=== PATIENT | male | born 1955 | race Caucasian/White ===

== ENCOUNTER → 2020-09-28 | Outpatient (CLI) | payer BC, OTHER ==
[~2020-09-28] MED LIST: AC500T PO; ATOR40TA PO; ATR20T PO; CETI10CA PO; CHOL100011 PO; CINNAMON PO; DCS100C PO; FENO134C PO; FISH1CAP15 PO; HYDR-3454 PO; HYDR-3857 PO; MULT-963 PO; UBID200C PO
--- NOTE | 2020-09-28 09:00 | Diagnostic Imaging Report ---
PROCEDURE: US Hepatic (Liver). TECHNIQUE: Multiple Real-time grayscale images were obtained over the right upper quadrant in various projections. INDICATION: Liver cyst. FINDINGS: The liver is enlarged at 18.9 cm. There is an approximately 15 mm cyst in the right lobe of the liver. No other liver lesions are seen. The portal vein is patent and shows normal direction of flow. The gallbladder contains a small polyp. No stones are seen. There is no wall thickening. No biliary ductal dilatation is seen. The pancreas, aorta, and IVC are obscured by bowel gas. The right kidney contains an area of rounded echogenicity in the midportion measuring approximately 2.8 x 2.4 cm in size. This is similar to the prior exam dating back to 2011 and may represent a prominent column. Otherwise, no hydronephrosis or calculus. There is no ascites. IMPRESSION: 1. Hepatic cyst. 2. No evidence of cholelithiasis or acute cholecystitis. 3. Questionable mass versus prominent column in the midportion of the right kidney. Dedicated CT with and without IV contrast could be performed for further characterization. Dictated by: Dictated on workstation # [id number]
== END ==
LOC: RAD 07:45
PROVIDERS: ATTEND Family Medicine
DX: K76.89 Other specified diseases of liver (principal)
CPT/HCPCS: 76705

== ENCOUNTER → 2020-10-11 | Outpatient (CLI) | payer OTHER ==
[~2020-10-11] MED LIST changes: +CATHETER FLUSH 10 ML SYR IV PRN; +HOLD METFORMIN - RECEIVED CONTRAST 20 ML VIAL IV SCH; +IOHEXOL 350 MG/ML 100 ML (OMNIPAQUE 350) VIAL IV ONE; +NS 100 ML (IVPB) BAG IV ONE
[2020-10-11 10:44] LABS: ALANINE AMINOTRANSFERASE 25 U/L (0-55); ALBUMIN 4.4 GM/DL (3.2-4.5); ALKALINE PHOSPHATASE 74 U/L (40-136); BILIRUBIN,TOTAL 0.6 MG/DL (0.1-1.0); BUN/CREATININE RATIO 21; CALCIUM 9.4 MG/DL (8.5-10.1); CARBON DIOXIDE 26 MMOL/L (21-32); CHLORIDE 106 MMOL/L (98-107); CREATININE SERUM 0.82 MG/DL (0.60-1.30); GFR ESTIMATED > 60; GLUCOSE 92 MG/DL (70-105); POTASSIUM 4.6 MMOL/L (3.6-5.0); SODIUM 139 MMOL/L (135-145); TOTAL PROTEIN 7.2 GM/DL (6.4-8.2)
--- NOTE | 2020-10-11 13:49 | Diagnostic Imaging Report ---
PROCEDURE: CT chest with contrast, CT abdomen and pelvis with and without contrast. TECHNIQUE: Pre and post intravenous contrast axial imaging of the abdomen and pelvis and post contrast axial imaging of the chest were performed. Auto Exposure Controls were utilized during the CT exam to meet ALARA standards for radiation dose reduction. INDICATION: Renal mass. The previous CT abdomen/pelvis exam of 05/15/2012 noted a 3.7 cm hyperintense enhancing mass in the anterior too-ap-bmfua pole of the left kidney. This was felt to be suspicious for malignancy. Reportedly in the interval since the prior exam that mass has been resected. The results of the surgical procedure are not known to me however. On this exam there is slight irregularity of the lateral cortex of the left kidney in the region of the previously described mass. However there is no abnormal enhancement in this area to suggest neoplasm or an acute inflammatory/infectious process. The kidneys are otherwise generally unremarkable. Just superior to the gallbladder fossa within the right lobe of the liver there is a 1.6 cm rounded area of low density. This finding has increased in size since the prior exam when it measured 0.8 cm. I do suspect that this is a benign process such as a cyst. Even so, I would recommend that ultrasound be performed to better evaluate this lesion. The liver, spleen, pancreas, adrenals, aorta and inferior vena cava and portal vein show no sign of an acute abnormality. There is still no evidence for a hemodynamically significant stenosis of the major branches of the aorta. The stomach is partially filled with fluid and consequently difficult to assess. There is no obvious gastric abnormality noted. The urinary bladder and prostate gland are grossly unremarkable. There are a few diverticula in the sigmoid and descending colon but there is no sign of acute diverticulitis. The appendix is not well-visualized but there are no indirect signs of acute appendicitis. The lung bases are generally clear. The small calcified granuloma in the right lower lobe seen previously is again evident and no different. The bone windows show no sign of a fracture or for a destructive lesion. IMPRESSION: 1. In the interval since the prior exam the mass along the lateral aspect of the left kidney has been resected. There is no abnormal enhancement in this area to suggest neoplastic disease or an inflammatory/infectious process. 2. There is no acute abnormality of the abdomen or pelvis identified. 3. There is diverticulosis of the sigmoid and descending colon but there is no sign of acute diverticulitis. Dictated by: Dictated on workstation # [id number]
== END ==
LOC: RAD 11:15
PROVIDERS: ATTEND Family Medicine
DX: N28.89 Other specified disorders of kidney and ureter (principal); K57.30 Diverticulosis of large intestine without perforation or abscess without bleeding
CPT/HCPCS: 36415; 71260; 74178; 80053

== ENCOUNTER 2021-02-02 15:42 | Outpatient (RCR) | payer OTHER ==
[~2021-02-02 15:42] MED LIST changes: -CATHETER FLUSH 10 ML SYR IV PRN; -HOLD METFORMIN - RECEIVED CONTRAST 20 ML VIAL IV SCH; -IOHEXOL 350 MG/ML 100 ML (OMNIPAQUE 350) VIAL IV ONE; -NS 100 ML (IVPB) BAG IV ONE
== END 2021-03-01 11:00 | disposition home or self-care (01) ==
DX: M25.562 Pain in left knee (principal); M25.561 Pain in right knee

== ENCOUNTER → 2021-03-08 | Outpatient (CLI) | payer OTHER ==
--- NOTE | 2021-03-08 10:06 | Diagnostic Imaging Report ---
PROCEDURE: MRI right joint lower extremity without contrast. TECHNIQUE: Multiplanar, multisequence non contrast-enhanced MRI of the right lower extremity was accomplished. INDICATION: Injury of the right knee couple of years ago with recently increased right knee pain. COMPARISON: None FINDINGS: No acute fracture is seen in the right knee. Alignment appears normal. There is a small right knee joint effusion. The articular cartilage in the patellofemoral compartment demonstrates mild heterogeneity and surface irregularity with partial thickness fissures. The cartilage in the medial compartment appears intact. The lateral compartment cartilage demonstrates a small full-thickness defect at the lateral femoral condyle measuring about 5 mm in width. There is a complex but predominantly horizontal tear of the medial meniscus involving the posterior horn and body. The lateral meniscus appears intact. Edema adjacent to the medial collateral ligament is thought to be due to the underlying meniscal pathology. No tear is seen. The lateral collateral ligamentous complex appears intact. The anterior and posterior cruciate ligaments are intact. The extensor mechanism is intact. The medial and lateral retinacula are intact. Soft tissues about the knee are otherwise unremarkable. IMPRESSION: 1. Tear of the medial meniscus in the right knee. 2. Mild cartilage loss in the right knee. 3. Small right knee joint effusion. Dictated by: Dictated on workstation # [id number]
== END ==
LOC: RAD 08:00
PROVIDERS: ATTEND Family Medicine
DX: M23.203 Derangement of unspecified medial meniscus due to old tear or injury, right knee (principal); M25.461 Effusion, right knee; M94.261 Chondromalacia, right knee
CPT/HCPCS: 73721

== ENCOUNTER 2021-04-18 05:30 | Outpatient (CLI) | payer OTHER ==
[~2021-04-18] VITALS: Ht 172.7 cm; Wt 90.9 kg
[2021-04-18] MEDS ORDERED: UBID200C16 PO (09:29)
[2021-04-18] MEDS ORDERED: ATOR10TA66 PO (09:29)
[2021-04-18] MEDS ORDERED: IBUP-30 PO (09:29)
[2021-04-18] MEDS ORDERED: CINN500C2 PO (09:29)
[2021-04-18] MEDS ORDERED: MULT-1136 PO (09:29)
[2021-04-18] MEDS ORDERED: OMG1KC PO (09:29)
[2021-04-18] MEDS ORDERED: LORA10TA7 PO (09:30)
[2021-04-18] MEDS ORDERED: ASPI-999 PO (09:30)
== END 2021-04-18 09:40 | disposition home or self-care (01) ==
LOC: PREOP 05:30
PROVIDERS: ATTEND Orthopaedic Surgery
DX: Z01.818 Encounter for other preprocedural examination (principal)

== ENCOUNTER 2021-04-26 09:23 | Day surgery (SDC) | payer OTHER ==
--- NOTE | 2021-04-17 16:35 | HISTORY AND PHYSICAL ---
DATE OF SERVICE: ADMISSION HISTORY AND PHYSICAL Surgery is outpatient, date of admission will be 04/26/2021 for right knee arthroscopy. HISTORY OF PRESENT ILLNESS: The patient is a 66-year-old gentleman with a several month history of progressive worsening right knee pain. He reports pain on the medial aspect of his knee. He reports at times had ambulated with a walker because of the knee. He has undergone treatment with physical therapy, rest, activity modifications without relief. An MRI was obtained, which showed a complex tear of the medial meniscus. Due to functional impairment and failure to improve with conservative measures, the patient has elected to proceed with surgical intervention. REVIEW OF SYSTEMS: No chest pain, no shortness of breath, no dysuria. PAST MEDICAL HISTORY: Allergic rhinitis, hypertension. PAST SURGICAL HISTORY: Sinus, kidney tumor removal, tonsillectomy, herniorrhaphy. FAMILY HISTORY: Noncontributory. PRIMARY CARE PROVIDER: Dr. Branch. MEDICATIONS: Zyrtec, aspirin, Flonase, Tylenol, fish oil. ALLERGIES: PEANUTS. SOCIAL HISTORY: The patient denies tobacco use and drinks alcohol socially. PHYSICAL EXAMINATION: GENERAL: The patient is well developed, well-nourished, in no acute distress. HEENT: Normocephalic, atraumatic. Pupils are equal, round and reactive to light. Oropharynx is clear. NECK: Supple, with no lymphadenopathy. LUNGS: Clear to auscultation bilaterally. HEART: Regular rate and rhythm. ABDOMEN: Soft, nontender, nondistended. EXTREMITIES: The right knee demonstrates moderate effusion, it is tender along his medial joint line, has pain with Carlee's. There is no varus or valgus laxity. Negative anterior and posterior drawer. Slight effusions noted. He ambulates with an antalgic gait. IMPRESSION: Right knee medial meniscus tear with associated chondromalacia. PLAN: Right knee arthroscopy, partial medial meniscectomy, chondroplasty. The risks, benefits, options, ramifications and recovery have been discussed at length with the patient. He understands and wishes to proceed. This will be for outpatient surgery on 04/26/2021 for right knee arthroscopy. Job ID: [id number] DocumentID: [id number] Dictated Date: 03/20/2021 11:13:46 Vibratory Pile Driver Date: 03/20/2021 11:51:52 Dictated By: JANA TELLO MD
--- NOTE | 2021-04-18 12:17 | HISTORY AND PHYSICAL ---
DATE OF SERVICE: ADMISSION HISTORY AND PHYSICAL DATE OF ADMISSION: 04/26/2021. This will be for outpatient surgery on 04/26/2021 for right knee arthroscopy. HISTORY OF PRESENT ILLNESS: The patient is a 66-year-old gentleman with the complaints of progressively worsening right knee pain. He underwent an MRI, which revealed evidence of a posterior horn medial meniscus tear. He reports symptoms became acutely worse six weeks ago, where he had to use a walker. He has been treated with physical therapy and rest without relief. Due to functional impairment and failure to improve with conservative measures, the patient elected to proceed with surgical intervention. REVIEW OF SYSTEMS: No chest pain, no shortness of breath, and no dysuria. PAST MEDICAL HISTORY: Allergic rhinitis, hypertension, and sinusitis. PAST SURGICAL HISTORY: Sinus tonsillectomy, kidney tumor excision, herniorrhaphy. FAMILY HISTORY: Noncontributory. PRIMARY CARE PROVIDER: Dr. Branch. MEDICATIONS: Zyrtec, aspirin, Flonase, Tylenol, fish oil, and atorvastatin. ALLERGIES: PEANUTS. SOCIAL HISTORY: The patient denies tobacco use. Drinks alcohol socially. PHYSICAL EXAMINATION: GENERAL: The patient is well-developed, well-nourished, in no acute distress. HEENT: Normocephalic, atraumatic. Pupils are equal, round, and reactive to light. Oropharynx is clear. NECK: Supple, no lymphadenopathy. LUNGS: Clear to auscultation bilaterally. HEART: Regular rate and rhythm. ABDOMEN: Soft, nontender, and nondistended. EXTREMITIES: The right knee demonstrates mild effusion, he is tender along his medial joint line, has pain medially with aCrlee's as well as with hyperflexion. There is no varus valgus laxity. Negative anterior and posterior drawer. Range of motion is 0/0/130. The patient ambulates with an antalgic gait. IMPRESSION: Right knee medial meniscus tear with associated chondromalacia. PLAN: Right knee arthroscopy with partial medial meniscectomy and chondroplasty. The risks, benefits, options, ramifications and recovery have been discussed at length with the patient. He understands and wishes to proceed. Job ID: [id number] DocumentID: [id number] Dictated Date: 04/18/2021 10:47:06 Automatic Pinsetter Adjuster Date: 04/18/2021 12:16:27 Dictated By: JANA TELLO MD
[~2021-04-26] VITALS: Ht 172.7 cm; Wt 90.9 kg
[2021-04-26] VITALS (11 sets, daily range): BP systolic 103–153; BP diastolic 75–95
[~2021-04-26 09:23] MED LIST changes: +ASPI-999 PO; +ATOR10TA66 PO; +CINN500C2 PO; +IBUP-30 PO; +LORA10TA7 PO; +MULT-1136 PO; +OMG1KC PO; +UBID200C16 PO
[2021-04-26] MEDS ORDERED: BUPIVACAINE 0.25% 30 ML (SENSORCAINE) VIAL ONE (09:38)
[2021-04-26] MEDS ORDERED: morphine PF (DURAMORPH) 10 MG/10 ML AMP ONE (09:38)
[2021-04-26] MEDS ORDERED: ceFAZolin INJECTION 1,000 MG in WATER (STERILE) FOR INJECTION 10 ML IV ONE (09:45)
[2021-04-26] MEDS ORDERED: LACTATED RINGERS 1,000 ML IV PRN (09:45)
[2021-04-26] MEDS ORDERED: ceFAZolin INJECTION 1,000 MG VIAL IV ONE (10:00)
[2021-04-26] MEDS ORDERED: LIDOCAINE PF 2% 5 ML (XYLOCAINE) VIAL ONE (10:01)
[2021-04-26] MEDS ORDERED: ONDANSETRON 4 MG/2 ML (SDV) Z0FRAN ONE (10:01)
[2021-04-26] MEDS ORDERED: proPOfol 200 MG/20 ML (DIPRIVAN) VIAL IV ONE (10:01)
[2021-04-26] MEDS ORDERED: MIDAZOLAM 2 MG/2 ML (VERSED) VIAL ONE (10:01)
[2021-04-26] MEDS ORDERED: fentaNYL INJ 100 MCG/2 ML AMP ONE (10:01)
--- NOTE | 2021-04-26 10:46 | Progress Note-Pre Operative ---
Pre-Operative Progress Note H&P Reviewed The H&P was reviewed, patient examined and no changes noted. Date Seen by Provider: Apr 26, 2021 Time Seen by Provider: 10:35 Date H&P Reviewed: Apr 26, 2021 Time H&P Reviewed: 07:11 Pre-Operative Diagnosis: right knee medial meniscus tear and chondromalacia JANA TELLO MD Apr 26, 2021 10:46
--- NOTE | 2021-04-26 10:47 | Progress Note-Post Operative ---
Post-Operative Progess Note Surgeon (s)/Discharge Specialist (s) Surgeon JANA TELLO MD Discharge Specialist: Luis Cain Pre-Operative Diagnosis right knee medial meniscus tear and chondromalacia Post-Operative Diagnosis right knee medial meniscus tear and chondromalacia of the medial tibia plateau and lateral femoral condyle Procedure & Operative Findings Date of Procedure 04/26/21 Procedure Performed/Findings right knee arthroscopic partial medial meniscectomy and chondroplasty ofthe m edial tibia plateau and lateral femoral condyle Anesthesia Type GETA Estimated Blood Loss Estimated blood loss (mL): minimal Specimens/Packing Specimens Removed none Packing: none JANA TELLO MD Apr 26, 2021 10:47
[2021-04-26] MEDS ORDERED: SEVOFLURANE (ULTANE) 15 ML INHAL SOLN ONE (11:36)
--- NOTE | 2021-04-26 14:07 | Physical Therapy Ortho Eval ---
PT Orthopedic Evaluation Type of Surgery Knee Scope Prior Level of Function Current Living Status: Spouse Locomotion (Upon Admit): Independent Established Durable Medical Eq: Front Wheeled Walker Subjective Subjective Patient reports 0/10 pain currently. Entry Into Home: Stairs With Railing Steps Into Home: 1 Motor Control Motor Control: Motor Control WNL ROM ROM: WFL, except focal deficit Strength Strength: WFL Transfer SCALE: Activities may be completed with or without assistive devices. 3-Wnylhhzdtp-otmiqgi completes the activity by him/herself with no assistance from a helper. 5-Set-up or Clean-up Assistance-helper sets up or cleans up; patient completes activity. [place] assists only prior to or following the activity. 4-Supervision or Touching Assistance-helper provides verbal cues and/or touching/steadying and/or contact guard assistance as patient completes activity. Assistance may be provided throughout the activity or intermittently. 3-Partial/Moderate Assistance-helper does LESS THAN HALF the effort. [place] lifts, holds or supports trunk or limbs, but provides less than half the effort. 2-Substantial/Maximal Assistance-helper does MORE THAN HALF the effort. [place] lifts or holds trunk or limbs and provides more than half the effort. 2-Fllbarfgy-pvqrzs does ALL the effort. Patient does none of the effort to complete the activity. Or, the assistance of 2 or more helpers is required for the patient to complete the activity. If activity was not attempted, code reason: 7-Patient Refused. 9-Not Applicable-not attempted and the patient did not perform the activity before the current illness, exacerbation or injury. 10-Not Attempted due to Environmental Limitations-(lack of equipment, weather restraints, etc.). 88-Not Attempted due to Medical Conditions or Safety Concerns. Transfers (B, C, W/C) (QC): 6 Gait Gait Assistive Device: FWW Right Lower Extremity: Right Weight Bearing Status RLE: Weight Bearing/Tolerated Gait (QC): 6 Distance (QC): 2=958-40 ft Distance: 100 Gait Level of Assist: 6 Treatment Rendered Treatment: Gait Train Assessment/Goals Goal Time Frame: 1 Visit Understands HEP: Yes Safe Ambulation: Yes Plan Treatment Plan: Discharge PT/Family Agrees to Plan: Yes Time Time In: 1350 Time Out: 1406 Billed Treatment Time Visit, JACKI Rick PT Apr 26, 2021 14:07
--- NOTE | 2021-04-26 18:23 | OPERATIVE REPORT ---
DATE OF SERVICE: 04/26/2021 PREOPERATIVE DIAGNOSIS: Right knee medial meniscus tear. POSTOPERATIVE DIAGNOSES: 1. Right knee medial meniscus tear. 2. 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 3. Right knee chondromalacia of lateral femoral condyle. PROCEDURES: 1. Right knee arthroscopic partial medial meniscectomy. 2. Right knee arthroscopic chondroplasty of the medial tibial plateau. 3. Right knee arthroscopic chondroplasty of the lateral femoral condyle. SURGEON: Emeterio Tello MD COUNTER CHECKER: uLis Cain, who assisted throughout the procedure and closed the incisions. ANESTHESIA: General endotracheal by Hortensia Marquez CRNA. TOURNIQUET TIME: ____. ESTIMATED BLOOD LOSS: Minimal. DRAINS: None. COMPLICATIONS: None. POSTOPERATIVE PLAN: Routine arthroscopy protocol. The patient was transferred to the to the recovery room awake and in stable condition. STATEMENT OF MEDICAL NECESSITY: The patient is a 66-year-old gentleman with complaints of right knee pain, catching, locking and swelling. He is tender along his medial joint line. An MRI revealed a posterior horn medial meniscus tear. He tried rest, activity modifications, physical therapy without relief. Due to functional impairment and failure to improve with conservative measures, the patient elected to proceed with surgical intervention. Examination under anesthesia revealed range of motion of 0/0/135 with negative Paula, negative anterior and posterior drawer, no varus valgus laxity and negative pivot shift. Arthroscopic findings patellar trochlea demonstrated grade II chondral softening with no significant chondral flaps. The medial and lateral gutters were clear. The ACL and PCL were intact. Lateral compartment demonstrated grade III chondral flaps over the central weightbearing portion of the lateral femoral condyle in a 20 x 20 area. No meniscal pathology was noted laterally. Medially, the medial tibial plateau demonstrated grade II chondral flaps over the central portion in a 10 x 10 area. In addition, there was a complex tear of the posterior horn and body of the medial meniscus involving approximately one-half of the posterior horn and body. DESCRIPTION OF PROCEDURE: After risks and benefits of procedure were discussed and questions were answered, an informed consent was signed and placed on chart. The operative site was confirmed in the preoperative holding area initialed by the surgeon. The patient was then transferred to the operating room and after adequate levels of general endotracheal anesthetic were obtained, a timeout was called, confirming the operative site. Examination under anesthesia was performed with above findings noted. The right lower extremity was prepped and draped in the usual sterile fashion. The knee joint was injected with 60 mL of fluid and standard inferolateral portal placed with arthroscope. Under direct visualization, inferior medial portal was created. The meniscal cruciate were carefully probed with the above findings noted. The unstable chondral flaps in lateral femoral condyle were debrided with a shaver back to a stable edge. Scope was redirected into the medial compartment where the posterior horn and body of the medial meniscus were debrided with a biter and shaver back to a stable edge. This was carefully probed with no further tearing or instability noted. Several chondral flaps on the medial tibial plateau were debrided with a shaver back to a stable edge as well. The knee was copiously irrigated. The portal sites were closed with 4-0 nylon in simple interrupted fashion. Knee was injected with Duramorph. Port sites were infiltrated with plain Marcaine. A soft dressing was applied and the patient was transferred to the recovery room awake and in stable condition. Job ID: [id number] DocumentID: [id number] Dictated Date: 04/26/2021 11:29:20 Check Embosser Date: 04/26/2021 17:19:01 Dictated By: EMETERIO TELLO MD
--- NOTE | 2021-04-27 08:05 | Anesthesia-General Post-Op ---
General Patient Condition Mental Status/LOC: Same as Preop Cardiovascular: Satisfactory Nausea/Vomiting: Absent Respiratory: Satisfactory Pain: Controlled Complications: Absent Post Op Complications Complications None Follow Up Care/Instructions Patient Instructions None needed. Anesthesia/Patient Condition Patient Condition Patient is doing well, no complaints, stable vital signs, no apparent adverse anesthesia problems. No complications reported per nursing. JENNYFER DOE CRNA Apr 27, 2021 08:05
== END 2021-04-26 14:07 ==
LOC: SDC 09:23
PROVIDERS: ATTEND Orthopaedic Surgery
DX: S83.241A Other tear of medial meniscus, current injury, right knee, initial encounter (principal); M94.261 Chondromalacia, right knee; I10 Essential (primary) hypertension; Z79.82 Long term (current) use of aspirin; Z79.899 Other long term (current) drug therapy
CPT/HCPCS: 87081

== ENCOUNTER → 2021-08-17 | Outpatient (CLI) | payer OTHER | LOC: LAB 13:44 | PROVIDERS: ATTEND Family Medicine | DX: R06.02 Shortness of breath (principal); I10 Essential (primary) hypertension | CPT/HCPCS: 36415; 85379 ==

== ENCOUNTER 2021-08-28 10:01 | Outpatient (RCR) | payer OTHER | END 2021-09-07 | disposition home or self-care (01) | DX: M54.2 Cervicalgia (principal); R42 Dizziness and giddiness ==

== ENCOUNTER → 2021-09-07 | Outpatient (CLI) | payer OTHER ==
--- NOTE | 2021-09-07 11:00 | Diagnostic Imaging Report ---
INDICATION: Neck pain. TIME OF EXAM: 10:05 AM 3 view cervical spine were obtained. FINDINGS: Curvature and alignment is normal. There is degenerative disc disease C5-C6 and C6-C7 levels with significant disc space narrowing and marginal spurring. Prevertebral tissues are normal. Odontoid appears intact. No fractures are seen. IMPRESSION: Lower cervical spondylosis. No acute bony abnormality is detected. Dictated by: Dictated on workstation # [id number]
--- NOTE | 2021-09-07 11:00 | Diagnostic Imaging Report ---
INDICATION: Low back pain. Time of Exam: 10:10 AM 3 views of the lumbar spine were obtained. Curvature and alignment is within normal limits. Vertebral body heights are well-maintained. There is no acute compression fracture. There is generalized degenerative disc disease with variable disc space narrowing and marginal spurring. Surgical clips in the left abdomen are noted. IMPRESSION: Lumbar spondylosis. No acute bony abnormality is detected. Dictated by: Dictated on workstation # [id number]
== END ==
LOC: RAD 09:41
PROVIDERS: ATTEND Family Medicine
DX: M47.812 Spondylosis without myelopathy or radiculopathy, cervical region (principal); M47.816 Spondylosis without myelopathy or radiculopathy, lumbar region
CPT/HCPCS: 72040; 72100

== ENCOUNTER → 2021-11-07 | Outpatient (RCR) | payer OTHER | END | disposition home or self-care (01) | DX: M79.605 Pain in left leg (principal) ==

== ENCOUNTER 2021-11-17 08:27 | Outpatient (RCR) | payer OTHER | END 2021-12-07 | disposition home or self-care (01) | DX: M79.605 Pain in left leg (principal) ==

== ENCOUNTER → 2022-03-09 | Outpatient (RCR) | payer OTHER | END | disposition home or self-care (01) | DX: M25.562 Pain in left knee (principal); I10 Essential (primary) hypertension ==

== ENCOUNTER 2022-08-30 08:23 | Outpatient (RCR) | payer OTHER | END 2022-08-30 10:29 | disposition home or self-care (01) | PROVIDERS: ATTEND Physical Therapist | DX: M25.562 Pain in left knee (principal); I10 Essential (primary) hypertension ==